=== PATIENT | female | born 1985 | race Caucasian/White ===

== ENCOUNTER 2017-06-19 11:37 | Emergency (ER) | payer OTHER ==
[~2017-06-19] VITALS: Ht 165.1 cm; Wt 82.6 kg
[2017-06-19] MEDS ORDERED: fentaNYL PF VIAL 100 MCG/2 ML VIAL IV ONE (11:45)
[2017-06-19] MEDS ORDERED: ONDANSETRON PF 4 MG/2 ML VIAL. IV ONE (11:45)
--- NOTE | 2017-06-19 12:54 | RAD ---
2 views right forearm radiograph 06/19/2017 Clinical indication: Right forearm pain status post fall. Findings: No acute fracture or traumatic malalignment of the radial ulnar diaphyses. Soft tissues unremarkable. Impression: No acute osseous abnormality.
--- NOTE | 2017-06-19 12:56 | RAD ---
Chest, 2 views, 06/19/2017: History: Fall, right-sided pain There is a mild left convexity lumbar scoliosis. The heart size and pulmonary vascularity are normal. No pulmonary infiltrates are seen. There is no evidence of pleural fluid or pneumothorax. IMPRESSION: No acute cardiopulmonary abnormality is detected. Right shoulder, 3 views, 06/19/2017: No fracture or dislocation is identified. A linear lucency projected over the upper scapula is probably due to an overlying soft tissue shadow. IMPRESSION: No acute right shoulder abnormality is detected. Right scapula, 2 views, 06/19/2017: No fracture is identified. IMPRESSION: No acute right scapular abnormality is detected.
--- NOTE | 2017-06-19 12:56 | RAD ---
2 views right wrist radiograph 06/19/2017 Clinical indication: Right wrist pain status post fall. Comparison: None. Findings: No acute fracture or traumatic malalignment. Normal alignment of the carpal bones. Soft tissues unremarkable. Impression: No acute osseous abnormality. If there is focal stuff box tenderness, immobilization and repeat radiograph in 10-14 days for radiographically occult scaphoid fracture is recommended.
[2017-06-19 13:32] VITALS: BP 105/76
--- NOTE | 2017-06-19 13:55 | PHYS DOC ---
Past Medical History Past Medical History: No Pertinent History, Depression Additional Past Medical Histor: epilepsy, PTSD, TBI Past Surgical History: Alcohol Use: None Drug Use: None Adult General Chief Complaint Chief Complaint: MECHANICAL FALL HPI HPI Patient is a 32 year old who presents with history of epilepsy presents with right wrist, forearm, shoulder blade pain after falling down some indoor steps yesterday. Patient states she had a seizure fell injuring herself. She did report hitting her head but denies headache or neck pain at this time. No nausea vomiting. No chest pain palpitations shortness breath or abdominal pain. No other symptoms or complaints.[] Review of Systems Review of Systems Review symptoms as per HPI. All other systems were reviewed and found to be within normal limits, except as documented in this note. Current Medications Current Medications Current Medications Medications (Trade) Dose Ordered Sig/Jamarcus Start Time Stop Time Status Last Admin Dose Admin Fentanyl Citrate (Fentanyl 2ml Vial) 50 mcg 1X ONCE 06/19/17 11:45 06/19/17 11:46 UNV Ondansetron HCl (Zofran) 4 mg 1X ONCE 06/19/17 11:45 06/19/17 11:46 UNV Allergies Allergies Allergies Coded Allergies Type Severity Reaction Last Updated Verified Penicillins Allergy Severe Anaphylaxis 06/19/17 Yes Uncoded Allergies Type Severity Reaction Last Updated Verified narcotics Adverse Reaction Unknown 06/19/17 Physical Exam Physical Exam Constitutional: Well developed, well nourished, no acute distress, non-toxic appearance. [] HENT: Normocephalic, atraumatic, bilateral external ears normal, oropharynx moist, nose normal. [] Eyes: PERRLA, EOMI, conjunctiva normal. [] Neck: Normal range of motion, no midline tenderness. [] Cardiovascular:Heart rate regular rhythm, no murmur [] Lungs & Thorax: Bilateral breath sounds clear to auscultation. [] Extremities: R wrist, soft tissue tenderness, no bruising or deformity. [] Neurologic: Alert and oriented X 3, normal motor function, normal sensory function, no focal deficits noted. [] Psychologic: Affect normal, judgement normal, mood normal. [] Current Patient Data Vital Signs Vital Signs Date Time Temp Pulse Resp B/P (MAP) Pulse Ox O2 Delivery O2 Flow Rate FiO2 06/19/17 13:32 70 16 99 06/19/17 11:55 98.0 120/60 (80) Room Air 98.0 Lab Values Laboratory Tests Test 06/19/17 11:53 POC Urine HCG, Qualitative Hcg negative (Negative) EKG EKG [] Radiology/Procedures Radiology/Procedures [Right shoulder/scapular/forearm/wrist: No fracture present per radiology report.] Course & Med Decision Making Course & Med Decision Making Pertinent Labs and Imaging studies reviewed. (See chart for details) [No fracture present. Patient already wearing Ameya wrap. Recommend continued supportive care with PCP follow-up as needed.] Dragon Disclaimer Dragon Disclaimer This electronic medical record was generated, in whole or in part, using a voice recognition dictation system. Departure Departure Impression: Primary Impression: Sprain of wrist, right Additional Impression: Shoulder sprain Disposition: 01 HOME, SELF-CARE Condition: GOOD Referrals: ESTELITA PARHAM MD (PCP) Patient Instructions: Joint Sprain Additional Instructions: You were evaluated in the emergency department for back, shoulder, forearm and wrist injury. Imaging studies were performed and did not show evidence of fracture. Please were splint and take ibuprofen for pain and follow-up with your PCP as needed. Problem Qualifiers NATHAN HANLEY DO Jun 19, 2017 13:55
== END 2017-06-19 14:06 | disposition home or self-care (01) ==
LOC: ER 11:37
DX: S63.501A Unspecified sprain of right wrist, initial encounter (principal); S43.401A Unspecified sprain of right shoulder joint, initial encounter; F32.9 Major depressive disorder, single episode, unspecified; G40.909 Epilepsy, unspecified, not intractable, without status epilepticus; F43.10 Post-traumatic stress disorder, unspecified; Z88.0 Allergy status to penicillin; Z87.820 Personal history of traumatic brain injury; Z88.5 Allergy status to narcotic agent; W10.9XXA Fall (on) (from) unspecified stairs and steps, initial encounter; Y93.89 Activity, other specified; Y92.89 Other specified places as the place of occurrence of the external cause; Y99.8 Other external cause status
CPT/HCPCS: 71020; 73010; 73030; 73090; 73100; 81025; 99284

== ENCOUNTER → 2017-07-02 | Outpatient (CLI) | payer OTHER ==
[2017-06-19 13:32] VITALS: BP 105/76
--- NOTE | 2017-07-02 11:02 | KCIC ---
UPPER EXT JOINT WO CONT RIGHT dated 07/02/2017 9:30 AM Indication: Right shoulder pain , recent fall , pain for 2 weeks. Comparison: No comparison is available. Technique: Routine multiplanar multisequence imaging performed. No contrast administered. Findings: Intermediate T2 signal within the supraspinatus and infraspinatus portions of the rotator cuff. No full-thickness tear or cuff retraction. Subscapularis is intact. AC joint unremarkable. No significant undersurface spurring. The acromium is type II morphology. No significant subacromial/subdeltoid bursal fluid collection. Long head biceps tendon biceps anchor are intact. Extra articular biceps tendon courses within the bicipital groove. Glenoid labrum is grossly intact. No apparent labral tear or para labral cyst. No glenohumeral joint effusion or loose body. Suprascapular and spinoglenoid notches are clear. No significant muscle edema or muscle atrophy. IMPRESSION:. 1. No evidence of internal derangement. 2. Mild rotator cuff tendinopathy with no evidence of full-thickness tear.. Electronically signed by: Eliud Jacob MD (07/02/2017 10:59 AM) [id number]
== END | disposition home or self-care (01) ==
LOC: KCIC MRI 09:50
PROVIDERS: ATTEND Family Medicine
DX: M25.511 Pain in right shoulder (principal); W19.XXXD Unspecified fall, subsequent encounter
CPT/HCPCS: 73221

== ENCOUNTER → 2017-07-05 | Outpatient (CLI) | payer OTHER ==
[2017-06-19 13:32] VITALS: BP 105/76
--- NOTE | 2017-07-05 17:11 | KCIC ---
MRI right wrist without contrast dated 07/05/2017 3:30 PM Indication: Right wrist pain seizure fall 2 weeks ago pain is generalized Comparison: No comparison is available. Technique: Routine multiplanar multisequence imaging performed. No contrast administered. Findings: Study is somewhat limited due to motion artifact and poor signal. There is mild increased signal at the distal pole of the scaphoid bone along the cortical margin, without discrete fracture line. There may be some focal thinning of the dorsal articular cartilage in this region. No scapholunate dissociation. Scapholunate ligament complex is grossly intact. Marrow signal is otherwise homogeneous. Lunotriquetral ligament is intact. The TFC complex is grossly intact. No focal osteochondral defect. Flexor and extensor tendons are intact. No abnormality of the carpal tunnel or Guyon's canal. No apparent joint effusion or loose body. There is mild dorsal translation of the distal ulna relative to the radius with mild subluxation of the extensor carpi ulnaris tendon relative to the ulnar groove. IMPRESSION: 1. Limited exam due to motion artifact and poor signal. 2. Small zone of bone marrow edema at the distal pole of the scaphoid bone, suggesting bone contusion. There is no discrete fracture line. There may be some focal cartilage thinning or small chondral defect along the dorsal margin of the distal scaphoid. 3. Dorsal translation of the distal ulna relative to the distal radius, most likely positional. Recommend clinical correlation. DRUJ instability cannot be excluded. Electronically signed by: Eliud Jacob MD (07/05/2017 5:08 PM) [id number]
== END | disposition home or self-care (01) ==
LOC: KCIC MRI 15:18
PROVIDERS: ATTEND Family Medicine
DX: M25.531 Pain in right wrist (principal); M25.511 Pain in right shoulder; R56.9 Unspecified convulsions
CPT/HCPCS: 73221

== ENCOUNTER 2017-07-06 15:27 | Emergency (ER) | payer OTHER ==
[2017-07-06 15:27] VITALS: BP 123/77
--- NOTE | 2017-07-06 15:40 | PHYS DOC ---
Past Medical History Past Medical History: No Pertinent History, Depression Additional Past Medical Histor: epilepsy, PTSD, TBI Past Surgical History: Alcohol Use: None Drug Use: None Adult General Chief Complaint Chief Complaint: SEIZURE HPI HPI Patient is a 32 year old female brought by EMS with the complaint of seizure- like activity. EMS told me that they picked patient up at a mandaeism where someone had called 911 because of a "seizure". EMS told me that when they arrived, the patient was having some flickering of her eyelids but she was able to stop and look at them when they called her name and they did not believe she was having a seizure. Then in route, she had some shaking movements of her arms but again she was able to stop and. Tension when her name was called, they did not believe the second episode was a seizure either. Patient arrived to the ED alert, with no evidence of postictal state. Patient tells me that she was doing some volunteer work for the [employer] and she thinks she got "overheated". Patient states "I don't know why they called 911, this isn't every day thing for me". She states she frequently has seizures. She does have an appointment coming up on September 04 at the epilepsy clinic at . This will be her first visit there. Patient states she takes Dilantin 200 mg twice a day and Keppra 500 mg twice a day. She's been on both of these for a long time. She took a dose of each this morning at about 8:30. Despite these meds she does still have frequent seizures. She does not drive. She also takes Effexor and BuSpar, has taken those for about 4 years, and she recently started on Chantix about 2 months ago to quit smoking and it is working well for her. PCP Dr. Javier at [facility] Review of Systems Review of Systems Constitutional: Denies fever or chills [] HENT: Denies nasal congestion or sore throat [] Respiratory: Denies cough or shortness of breath [] Cardiovascular: Denies chest pain GI: Nausea or vomiting : Denies Musculoskeletal: Denies back pain or joint pain [] Integument: Denies rash or skin lesions [] Neurologic: She has a mild headache All other systems were reviewed and found to be within normal limits, except as documented in this note. Allergies Allergies Allergies Coded Allergies Type Severity Reaction Last Updated Verified Penicillins Allergy Severe Anaphylaxis 06/19/17 Yes Uncoded Allergies Type Severity Reaction Last Updated Verified narcotics Adverse Reaction Unknown 06/19/17 Physical Exam Physical Exam Constitutional: Well developed, well nourished, no acute distress, non-toxic appearance. Alert, appropriate, does not appear postictal, no evidence of trauma. HENT: Normocephalic, atraumatic, bilateral external ears normal, nose normal. [ ] Eyes: PERRLA, conjunctiva normal, no discharge. [] Neck: Normal range of motion, no stridor. [] Cardiovascular:Heart rate regular rhythm, no murmur [] Lungs & Thorax: Bilateral breath sounds clear to auscultation [] Abdomen: Bowel sounds normal, soft, no tenderness, no masses, no pulsatile masses. [] Skin: Warm, dry, no erythema, no rash. [] Extremities: No tenderness, no cyanosis, no clubbing, ROM intact, no edema. [] Neurologic: Alert and oriented X 3, normal motor function, no focal deficits noted. [] Current Patient Data Vital Signs Vital Signs Date Time Temp Pulse Resp B/P (MAP) Pulse Ox O2 Delivery O2 Flow Rate FiO2 07/06/17 15:27 98.4 83 20 123/77 (92) 97 Room Air 98.4 EKG EKG [] Radiology/Procedures Radiology/Procedures [] Course & Med Decision Making Course & Med Decision Making Pertinent Labs and Imaging studies reviewed. (See chart for details) 32-year-old female presents by EMS after having 2 episodes of "seizure-like" activity but it does not sound like she had any actual seizure witnessed. Patient is not postictal. She is alert and appropriate. Patient states that she has frequent seizures and does not view this as an emergency. She is only here because she was volunteering and someone called 911. She doesn't want any further evaluation. She recently had a Dilantin level and it was therapeutic, she states. She declines to have any further evaluation at this time and she would like to be discharged. I believe the patient is appropriate for discharge. See instructions for plan. [] Dragon Disclaimer Dragon Disclaimer This electronic medical record was generated, in whole or in part, using a voice recognition dictation system. Departure Departure Impression: Primary Impression: Seizure-like activity Additional Impression: History of seizure disorder Disposition: HOME, SELF-CARE Condition: STABLE Referrals: ESTELITA PARHAM MD (PCP) Patient Instructions: Seizure, Adult Additional Instructions: As we discussed, continue to take your seizure medicines as prescribed by your doctor and continue to follow-up as planned with the seizure clinic. Problem Qualifiers JEANNETTE RICHARDS MD Jul 06, 2017 15:40
== END 2017-07-06 15:54 | disposition home or self-care (01) ==
LOC: ER 15:27
DX: G40.909 Epilepsy, unspecified, not intractable, without status epilepticus (principal); F43.10 Post-traumatic stress disorder, unspecified; F32.9 Major depressive disorder, single episode, unspecified; Z87.820 Personal history of traumatic brain injury; Z88.0 Allergy status to penicillin; Z79.899 Other long term (current) drug therapy; Z88.5 Allergy status to narcotic agent
CPT/HCPCS: 99284

== ENCOUNTER 2017-08-20 21:21 | Emergency (ER) | payer OTHER | END 2017-08-20 21:31 | disposition left against medical advice (07) | LOC: ER 21:21 | DX: R51 Headache (principal); R42 Dizziness and giddiness; Z53.21 Procedure and treatment not carried out due to patient leaving prior to being seen by health care provider ==

== ENCOUNTER 2018-03-13 15:51 | Emergency (ER) | payer OTHER ==
[~2018-03-13] VITALS: Ht 165.1 cm; Wt 87.1 kg
[2018-03-13 16:35] VITALS: BP 127/77
[2018-03-13] MEDS ORDERED: ONDANSETRON PF 4 MG/2 ML VIAL. IV ONE (17:00)
[2018-03-13 17:04] LABS: BILIRUBIN,URINE NEGATIVE (NEG); CLARITY,URINE CLEAR; COLOR,URINE YELLOW; NITRITE,URINE POSITIVE (NEG); PROTEIN,URINE NEGATIVE (NEG-TRACE); UROBILINOGEN,URINE 0.2 mg/dL (0.2 mg/dL)
[2018-03-13 17:10] LABS: BARBITURATES NEG (NEG); BENZODIAZEPINES NEG (NEG); CANNABINOIDS NEG (NEG); COCAINE NEG (NEG); METHADONE NEG (NEG); OPIATES NEG (NEG); PHENCYCLIDINE NEG (NEG)
[2018-03-13 17:11] LABS: AMPHETAMINE/METHAMPHETAMINE NEG (NEG)
[2018-03-13 17:23] LABS: BACTERIA,URINE MODERATE /HPF (0-FEW); RBC,URINE 0 /HPF (0-2); SQUAMOUS EPITHELIAL CELL,UR MOD /LPF
--- NOTE | 2018-03-13 17:25 | PHYS DOC ---
Past Medical History Past Medical History: Bipolar, Cancer, Depression, Seizure, Other Additional Past Medical Histor: epilepsy,PTSD,TBI,BRUNO'S SARCOMA, TTP Past Surgical History: , Other Additional Past Surgical Histo: BONE BX X 2 Alcohol Use: None Drug Use: None Adult General Chief Complaint Chief Complaint: SEIZURE HPI HPI Patient is a 32-year-old female who presents with report of having had a total of 6 seizures today. Patient states that prior to the seizures, she has had a history of nausea and vomiting as well as sinus pain and drainage that has been present for the last 3-4 days. Patient states that she believes the vomiting started because of the sinus drainage that she has had. Patient states that she has had green nasal discharge and states that it has been causing a cough in the morning. She states that she has been doing a lot of gagging from the mucus which has caused the vomiting. Patient states that she is on both Keppra and Dilantin for her seizure disorder and states that she has not been able to keep those medications down since the vomiting started. She denies any chest pain or shortness of breath. She does admit to some mild nausea currently. She denies headache. Review of Systems Review of Systems Constitutional: Denies fever or chills [] HENT: Positive nasal/sinus congestion with purulent nasal discharge[] Respiratory: Admits to cough] Cardiovascular: Denies chest pain[] GI: Denies abdominal pain. Complains of nausea and vomiting. [] Neurologic: Reports seizure activity 6 in the last 24 hours[] All other systems were reviewed and found to be within normal limits, except as documented in this note. Current Medications Current Medications Current Medications Medications (Trade) Dose Ordered Sig/Jamarcus Start Time Stop Time Status Last Admin Dose Admin Levetiracetam 500 mg/Dextrose 105 ml @ 440 mls/hr 1X ONCE 03/13/18 17:30 03/13/18 17:30 DC Ondansetron HCl (Zofran) 4 mg 1X ONCE 03/13/18 17:00 03/13/18 17:01 DC Sodium Chloride 1,000 ml @ 1,000 mls/hr 1X ONCE 03/13/18 17:30 03/13/18 17:30 DC Allergies Allergies Allergies Coded Allergies Type Severity Reaction Last Updated Verified Penicillins Allergy Severe Anaphylaxis 06/19/17 Yes Uncoded Allergies Type Severity Reaction Last Updated Verified narcotics Adverse Reaction Unknown 06/19/17 Physical Exam Physical Exam Constitutional: Well developed, well nourished, no acute distress, non-toxic appearance. [] HENT: Normocephalic, atraumatic, bilateral external ears normal, oropharynx moist, no oral exudates, nose normal. Patient does report tenderness on percussion of the maxillary sinuses bilaterally. [] Eyes: PERRLA, EOMI, conjunctiva normal, no discharge. [] Neck: Normal range of motion, no tenderness, supple, no stridor. [] Cardiovascular:Heart rate regular rhythm, no murmur [] Lungs & Thorax: Bilateral breath sounds clear to auscultation [] Abdomen: Bowel sounds normal, soft, no tenderness. [] Skin: Warm, dry, no erythema, no rash. [] Extremities: No tenderness, no cyanosis, no clubbing, ROM intact, no edema. [] Neurologic: Alert and oriented X 3, normal motor function, normal sensory function, no focal deficits noted. [] Current Patient Data Vital Signs Vital Signs Date Time Temp Pulse Resp B/P (MAP) Pulse Ox O2 Delivery O2 Flow Rate FiO2 03/13/18 16:35 98.2 78 16 127/77 (94) 96 Room Air 98.2 Lab Values Laboratory Tests Test 03/13/18 16:35 POC Urine HCG, Qualitative Hcg negative (Negative) EKG EKG [] Radiology/Procedures Radiology/Procedures [] Course & Med Decision Making Course & Med Decision Making Pertinent Labs and Imaging studies reviewed. (See chart for details) Prior to completion of workup, patient has signed out AGAINST MEDICAL ADVICE prior to my ability to intervene and discuss risks of leaving. Dragon Disclaimer Dragon Disclaimer This electronic medical record was generated, in whole or in part, using a voice recognition dictation system. Departure Departure Impression: Primary Impression: Left against medical advice Additional Impressions: Seizure disorder Sinusitis Disposition: 07 AGAINST MEDICAL ADVICE Condition: STABLE Problem Qualifiers Additional Impressions: Sinusitis Sinusitis location: maxillary Chronicity: unspecified Qualified Codes: J32.0 - Chronic maxillary sinusitis SUSHIL HOLCOMB Jr. DO Mar 13, 2018 17:25
[2018-03-13] MEDS ORDERED: levETIRAcetam 500 MG in IV DEXTROSE 5% 100ML 100 ML IV ONE (17:30)
[2018-03-13] MEDS ORDERED: IV NORMAL SALINE 1000ML BAG 1,000 ML IV ONE (17:30)
== END 2018-03-13 17:00 | disposition left against medical advice (07) ==
LOC: ER 15:51
DX: G40.909 Epilepsy, unspecified, not intractable, without status epilepticus (principal); J32.0 Chronic maxillary sinusitis; F31.9 Bipolar disorder, unspecified; F43.10 Post-traumatic stress disorder, unspecified; Z88.0 Allergy status to penicillin; Z88.5 Allergy status to narcotic agent
CPT/HCPCS: 80307; 81001; 81025; 87086; 87186; 99284; G0479